=== PATIENT | female | born 2000 | race Caucasian/White ===

== ENCOUNTER 2021-12-09 23:07 | Emergency (ER) | payer MEDICAID, OTHER ==
[~2021-12-09] VITALS: Ht 172.7 cm; Wt 108.0 kg
[2021-12-10] MEDS ORDERED: AMOX-277 PO (01:12)
[2021-12-10 01:25] VITALS: BP 122/82
== END 2021-12-10 01:34 | disposition home or self-care (01) ==
LOC: ER 23:07
DX: J01.90 Acute sinusitis, unspecified (principal); Z79.2 Long term (current) use of antibiotics